=== PATIENT | female | born 2000 | race Asian ===

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

== ENCOUNTER → 2021-01-20 | Outpatient (REF) | payer OTHER, MEDICAID ==
[2021-01-20 14:40] LABS: ALBUMIN 4.5 GM/DL (3.2-5.2); ALT/SGPT 21 U/L (12-78); BILIRUBIN,TOTAL 0.5 MG/DL (0.2-1.0); BLOOD UREA NITROGEN 14 MG/DL (7-18); CALCIUM LEVEL 10.1 MG/DL (8.5-10.1); CARBON DIOXIDE LEVEL 29 MEQ/L (21-32); CHLORIDE LEVEL 107 MEQ/L (98-107); FREE THYROXINE INDEX 2.6 % (1.3-4.8); GLUCOSE, FASTING 78 MG/DL (70-100); POTASSIUM SERUM 4.2 MEQ/L (3.5-5.1); SODIUM LEVEL 141 MEQ/L (136-145); T UPTAKE 29 % (30-39); THYROXINE (T4) 8.8 UG/DL (6.0-11.6)
== END ==
LOC: M LABDRWAD 12:24
PROVIDERS: ATTEND Physician Assistant
DX: R94.6 Abnormal results of thyroid function studies (principal); R79.9 Abnormal finding of blood chemistry, unspecified

== ENCOUNTER → 2021-06-14 | Outpatient (CLI) | payer OTHER, MEDICAID ==
[2021-06-14 19:07] LABS: FREE T4 0.94 NG/DL (0.78-1.33)
[2021-06-14 19:08] LABS: THYROID PEROXIDASE ANTIBODY > 1300.0 U/ML (<60.0)
== END ==
LOC: M PLALAB 15:32
PROVIDERS: ATTEND Nurse Practitioner Family
DX: E03.9 Hypothyroidism, unspecified (principal)

== ENCOUNTER → 2021-10-06 | Outpatient (CLI) | payer OTHER | LOC: M LAB 11:48 | PROVIDERS: ATTEND Internal Medicine Endocrinology, Diabetes & Metabolism | DX: E06.3 Autoimmune thyroiditis (principal) ==

== ENCOUNTER → 2021-11-24 | Outpatient (CLI) | payer OTHER ==
[2021-11-24 14:16] LABS: FREE T4 1.41 NG/DL (0.78-1.33); THYROID STIMULATING HORMONE 0.045 uIU/ML (0.463-3.98)
== END ==
LOC: M PLALAB 10:50
PROVIDERS: ATTEND Internal Medicine Endocrinology, Diabetes & Metabolism
DX: E06.3 Autoimmune thyroiditis (principal)

== ENCOUNTER → 2022-01-22 | Outpatient (CLI) | payer OTHER ==
[2022-01-22 14:30] LABS: FREE T4 0.96 NG/DL (0.78-1.33); THYROID STIMULATING HORMONE 6.91 uIU/ML (0.463-3.98)
== END ==
LOC: M ADAMS 08:48
PROVIDERS: ATTEND Nurse Practitioner Family
DX: E06.3 Autoimmune thyroiditis (principal)

== ENCOUNTER → 2022-02-21 | Outpatient (CLI) | payer OTHER ==
[2022-02-21 13:25] LABS: BASO # 0.1 10^3/uL (0.0-0.2); BASO % 1.5 % (0.0-1.0); EOS # 0.2 10^3/uL (0.0-0.5); EOS % 4.3 % (0.0-3.0); HEMATOCRIT 40.7 % (36.0-47.0); HEMOGLOBIN 13.4 g/dl (12.0-15.5); LYMPH # 2.1 10^3/uL (1.5-5.0); LYMPH % 40.3 % (24.0-44.0); MEAN CORPUSCULAR HGB CONC 32.9 g/dl (32.0-36.5); MEAN CORPUSCULAR VOLUME 82.1 fl (80.0-96.0); MONO # 0.3 10^3/uL (0.0-0.8); MONO % 5.9 % (2.0-8.0); NEUTROPHILS # 2.5 10^3/uL (1.5-8.5); NEUTROPHILS % 47.8 % (36.0-66.0); PLATELET COUNT, AUTOMATED 280 10^3/uL (150-450); RED BLOOD COUNT 4.96 10^6/uL (4.00-5.40); WHITE BLOOD COUNT 5.3 10^3/uL (4.0-10.0)
[2022-02-21 14:03] LABS: ALBUMIN 4.6 GM/DL (3.2-5.2); ALT/SGPT 20 U/L (12-78); BILIRUBIN,TOTAL 0.4 MG/DL (0.2-1.0); BLOOD UREA NITROGEN 16 MG/DL (7-18); CARBON DIOXIDE LEVEL 26 MEQ/L (21-32); CHLORIDE LEVEL 106 MEQ/L (98-107); CREATININE FOR GFR 0.86 MG/DL (0.55-1.30); FREE T4 1.19 NG/DL (0.78-1.33); GLUCOSE, FASTING 83 MG/DL (70-100); SODIUM LEVEL 140 MEQ/L (136-145); TOTAL PROTEIN 8.3 GM/DL (6.4-8.2)
== END ==
LOC: M ADAMS 08:09
PROVIDERS: ATTEND Nurse Practitioner Family
DX: E03.9 Hypothyroidism, unspecified (principal)

== ENCOUNTER → 2022-03-21 | Outpatient (CLI) | payer OTHER ==
[2022-03-21 17:41] LABS: FREE T4 1.68 NG/DL (0.78-1.33); THYROID STIMULATING HORMONE 0.097 uIU/ML (0.463-3.98)
== END ==
LOC: M LAB 13:23
PROVIDERS: ATTEND Nurse Practitioner Family
DX: E06.3 Autoimmune thyroiditis (principal)

== ENCOUNTER → 2022-07-04 | Outpatient (CLI) | payer OTHER ==
[2022-07-04 18:46] LABS: FREE T4 1.41 NG/DL (0.78-1.33); THYROID STIMULATING HORMONE 0.051 uIU/ML (0.463-3.98)
== END ==
LOC: M LABDRWAD 10:42
PROVIDERS: ATTEND Nurse Practitioner Family
DX: E03.9 Hypothyroidism, unspecified (principal)

== ENCOUNTER → 2022-09-28 | Outpatient (REF) | payer OTHER ==
[2022-09-28 15:34] LABS: FREE T4 1.23 NG/DL (0.89-1.76); THYROID STIMULATING HORMONE 4.199 uIU/ML (0.55-4.78)
== END ==
LOC: M LABDRWAD 12:39
PROVIDERS: ATTEND Nurse Practitioner Family
DX: E03.9 Hypothyroidism, unspecified (principal)

== ENCOUNTER → 2022-12-21 | Outpatient (REF) | payer OTHER ==
[2022-12-21 15:19] LABS: THYROID STIMULATING HORMONE 2.36 uIU/ML (0.55-4.78)
[2022-12-21 15:20] LABS: FREE T4 0.97 NG/DL (0.89-1.76)
== END ==
LOC: M LABDRWAD 12:39
PROVIDERS: ATTEND Nurse Practitioner Family
DX: E03.9 Hypothyroidism, unspecified (principal)

== ENCOUNTER → 2023-07-01 | Outpatient (REF) | payer OTHER ==
[2023-07-02 01:30] LABS: THYROID STIMULATING HORMONE 2.362 uIU/ML (0.55-4.78)
[2023-07-02 01:31] LABS: FREE T4 1.21 NG/DL (0.89-1.76)
== END ==
LOC: M LABDRWAD 12:44
PROVIDERS: ATTEND Nurse Practitioner Family
DX: E03.9 Hypothyroidism, unspecified (principal)

== ENCOUNTER 2023-11-25 08:13 | Emergency (ER) | payer OTHER ==
[~2023-11-25] VITALS: Ht 154.9 cm; Wt 53.1 kg
[2023-11-25] MEDS ORDERED: LEVO50TA5 (08:37)
[2023-11-25] MEDS ORDERED: RABIES VACCINE HUMAN 2.5 INTERNATIONAL UNITS/ML VIAL IM.IMMUN ONE (11:10)
[2023-11-25] MEDS ORDERED: RABIES IMMUNE GLOBULIN 1500 INTERNATIONAL UNIT/5ML VIAL IM.IMMUN ONE (11:10)
[2023-11-25] MEDS ORDERED: CEPH500C PO (11:24)
[2023-11-25] MEDS: CEPHALEXIN 500 MG CAP PO ONE (11:25)
[2023-11-25 11:35] VITALS: BP 131/69; TEMP 97; O2SAT 100
== END 2023-11-25 11:36 | disposition home or self-care (01) ==
LOC: M ED 08:13
DX: S61.031A Puncture wound without foreign body of right thumb without damage to nail, initial encounter (principal); W55.81XA Bitten by other mammals, initial encounter; Y92.009 Unspecified place in unspecified non-institutional (private) residence as the place of occurrence of the external cause; Y93.84 Activity, sleeping; Y99.9 Unspecified external cause status; Z79.899 Other long term (current) drug therapy